=== PATIENT | female | born 1980 | race Two or more races ===

== ENCOUNTER 2023-05-25 22:05 | Emergency (ER) | payer OTHER ==
[~2023-05-25] VITALS: Ht 157.5 cm; Wt 85.0 kg
[2023-05-25 22:10] VITALS: BP 115/71; PULSE 65; RESP 14; TEMP 97.9
[2023-05-25] MEDS ORDERED: GABA-1181 PO (22:24)
[2023-05-25] MEDS ORDERED: NAPR-1025 PO (22:24)
[2023-05-25] MEDS ORDERED: SERT-162 PO (22:24)
[2023-05-25 23:19] LABS: APPEARANCE,URINE CLEAR (CLEAR); BILIRUBIN,URINE NEGATIVE (NEGATIVE); COLOR,URINE YELLOW (YELLOW); GLUCOSE, URINE (UA) NEGATIVE (NEGATIVE); HCG,QUAL URINE NEGATIVE (NEGATIVE); KETONES,URINE NEGATIVE (NEGATIVE); OCCULT BLOOD,URINE TRACE (NEGATIVE); PROTEIN,URINE NEGATIVE (NEGATIVE); SPECIFIC GRAVITIY, URINE 1.031 (1.003-1.030); UROBILINOGEN,URINE <=1.0 mg/dL (<=1.0)
[2023-05-25 23:20] LABS: LEUKOCYTE ESTERASE ,URINE TRACE (NEGATIVE); NITRATE,URINE NEGATIVE (NEGATIVE)
[2023-05-25 23:41] LABS: BACTERIA,URINE None Seen /HPF (None Seen); RBC,URINE 0-2 /HPF (0-2); SQUAMOUS EPITHELIAL CELL,UR None Seen /LPF (None Seen); WBC,URINE 0-2 /HPF (0-5)
[2023-05-26] MEDS: IBUPROFEN 400 MG TABLET PO ONE (00:58)
== END 2023-05-26 02:12 | disposition left against medical advice (07) ==
LOC: EMS 22:09
DX: R10.2 Pelvic and perineal pain (principal); Z53.21 Procedure and treatment not carried out due to patient leaving prior to being seen by health care provider
CPT/HCPCS: 81001; 84703; 99281; Z7502